=== PATIENT | female | born 1970 | race Caucasian/White ===

== ENCOUNTER 2021-06-02 08:28 | Outpatient (CLI) | payer MEDICARE | END 2021-06-02 08:29 | disposition home or self-care (01) | LOC: CTENTCT 08:28 | PROVIDERS: ATTEND Specialist | DX: J32.9 Chronic sinusitis, unspecified (principal) | CPT/HCPCS: 70486 ==

== ENCOUNTER 2021-06-08 09:59 | Outpatient (CLI) | payer MEDICARE | END 2021-06-08 10:00 | disposition home or self-care (01) | LOC: BICRAD 09:59 | PROVIDERS: ATTEND Dermatology | DX: L40.0 Psoriasis vulgaris (principal) | CPT/HCPCS: 71046 ==

== ENCOUNTER 2021-08-30 08:51 | Outpatient (CLI) | payer MEDICARE ==
[2021-08-30 10:45] LABS: #Basophils 0.1 10x3/uL (0.0-0.2); #Eosinphils 0.3 10x3/uL (0.0-0.5); #Monocytes 0.6 10x3/uL (0.0-1.1); #Neutrophils 6.7 10x3/uL (1.5-8.4); %Basophils 0.8 % (0.0-2.0); %Eosinophils 2.6 % (0.0-6.0); %Lymphocytes 24.7 % (18.0-47.0); %Monocytes 5.8 % (0.0-10.0); %Neutrophils 65.6 % (40.0-75.0); Hemoglobin 13.9 g/dL (12.0-15.5); Mean Corpuscular HGB CONC 32.2 g/dL (32.0-36.0); Mean Corpuscular Hemoglobin 30.5 pg (27.0-33.0); Mean Corpuscular Volume 94.7 fl (81.6-98.3); Mean Platelet Volume 11.7 fl (7.4-10.4); Platelet Count 241 10x3/uL (150-450); RBC Distribution Width 16.4 % (11.5-14.5); Red Blood Cell (RBC) Count 4.56 10x6/uL (3.90-5.03); White Blood Cell (WBC) Count 10.2 10x3/uL (3.5-10.5)
[2021-08-30 10:54] LABS: Anion Gap 13 mmol/L (10-20); BUN (Urea Nitrogen) 9 mg/dL (7.0-18.7); Calc. Creatinine Clearance 0 mL/min (70-130); Calcium 9.4 mg/dL (7.8-10.44); Carbon Dioxide 28 mmol/L (22-29); Chloride 104 mmol/L (98-107); Glucose 93 mg/dL (70-105); Sodium 140 mmol/L (136-145)
[2021-08-30 19:53] LABS: SARS-CoV-2 PCR by NAA Not Detected (NotDetected)
== END 2021-08-30 08:52 | disposition home or self-care (01) ==
LOC: LABBT 08:51
PROVIDERS: ATTEND Surgery
DX: Z01.812 Encounter for preprocedural laboratory examination (principal); M79.9 Soft tissue disorder, unspecified; Z20.822 Contact with and (suspected) exposure to COVID-19
CPT/HCPCS: 80048; 85025; U0003; U0005

== ENCOUNTER 2021-09-02 06:55 | Day surgery (SDC) | payer MEDICARE ==
[2021-08-26 10:20] VITALS: BMI 25.7
[2021-09-02] MEDS ORDERED: ceFAZolin 2 GM/DEX 5% 100 ML BAG ONE (08:08)
[2021-09-02] MEDS ORDERED: Xylocaine 1% w/ Epi 1:100K 10 ML VIAL ONE (08:25)
[2021-09-02] MEDS ORDERED: Bupivacaine 0.25% 10 ML VIAL ONE (08:25)
[2021-09-02] MEDS ORDERED: Fentanyl 100 MCG/2 ML VIAL ONE ×4 (08:32→10:44)
[2021-09-02] MEDS ORDERED: Ondansetron PF 4 MG/2 ML Vial ONE (08:44)
[2021-09-02] MEDS ORDERED: PROPOFOL 200 MG/20 ML VIAL ONE (08:44)
[2021-09-02] MEDS ORDERED: Lidocaine 1% PF 5 ML VIAL ONE (08:44)
[2021-09-02] MEDS ORDERED: HYDROcodone/Acetaminophen 5/325 mg Tablet ONE (11:37)
== END 2021-09-02 11:58 | disposition home or self-care (01) ==
LOC: SDC 06:55
PROVIDERS: ATTEND Surgery
PROC: 0KBL0ZZ Excision of Left Abdomen Muscle, Open Approach (ICD-10-PCS; principal; 2021-09-02)
DX: M79.5 Residual foreign body in soft tissue (principal); Z79.899 Other long term (current) drug therapy; Z88.8 Allergy status to other drugs, medicaments and biological substances; Z98.84 Bariatric surgery status
CPT/HCPCS: 88305; J2405; J2704; J3010; S0020

== ENCOUNTER 2022-08-23 15:17 | Outpatient (CLI) | payer OTHER | END 2022-08-23 15:18 | disposition home or self-care (01) | LOC: BICCT 15:17 | PROVIDERS: ATTEND Family Medicine | DX: S06.0X0D Concussion without loss of consciousness, subsequent encounter (principal) | CPT/HCPCS: 70450 ==

== ENCOUNTER 2022-11-07 08:06 | Outpatient (CLI) | payer OTHER | END 2022-11-07 08:07 | disposition home or self-care (01) | LOC: SCSMRI 08:06 | PROVIDERS: ATTEND Neurological Surgery | DX: M81.0 Age-related osteoporosis without current pathological fracture (principal); M43.25 Fusion of spine, thoracolumbar region; M54.6 Pain in thoracic spine; M43.14 Spondylolisthesis, thoracic region; M43.22 Fusion of spine, cervical region; M40.204 Unspecified kyphosis, thoracic region; M46.1 Sacroiliitis, not elsewhere classified; M50.31 Other cervical disc degeneration, high cervical region; M47.812 Spondylosis without myelopathy or radiculopathy, cervical region; S32.009K Unspecified fracture of unspecified lumbar vertebra, subsequent encounter for fracture with nonunion; Z98.890 Other specified postprocedural states | CPT/HCPCS: 72141; 72146; 72148 ==

== ENCOUNTER 2023-05-02 09:37 | Outpatient (CLI) | payer MEDICARE | END 2023-05-02 09:38 | disposition home or self-care (01) | LOC: SCSMRI 09:37 | PROVIDERS: ATTEND Family Medicine | DX: G44.52 New daily persistent headache (NDPH) (principal); H43.393 Other vitreous opacities, bilateral; S06.9X0D Unspecified intracranial injury without loss of consciousness, subsequent encounter; J32.0 Chronic maxillary sinusitis; J33.1 Polypoid sinus degeneration; R90.82 White matter disease, unspecified | CPT/HCPCS: 70553 ==